=== PATIENT | female | born 1965 | race Caucasian/White ===

== ENCOUNTER → 2020-08-13 | Outpatient (CLI) | payer MEDICARE, OTHER ==
[~2020-08-13] MED LIST: ALL DAY ALLERGY10 M2 PO; CRESTOR20 MG PO; DEXILANT30 MG PO; FELDENE10 MG PO; FLEXERIL 10 MG10 MG PO; GABAPENTIN800 MG PO; HYDROCODONE BIT10 MG PO; LINZESS290 MCG PO; LISINOPRIL40 MG PO; LODINE CAP 300300 MG PO; METFORMIN ER1000 MG PO; MOBIC15 MG PO; PEPCID20 MG PO; SENNA LAX8.6 MG PO; VITAMIN B12-FO1 EACH PO; VITAMIN D21250 MCG PO; Voltaren Gel 1 % TOP
== END ==
LOC: KOH-I 13:39
DX: J44.9 Chronic obstructive pulmonary disease, unspecified (principal)
CPT/HCPCS: 71046

== ENCOUNTER → 2021-06-17 | Outpatient (CLI) | payer MEDICARE, OTHER ==
[~2021-06-17] MED LIST changes: +BIOTIN PO; +CLONAZEPAM1 MG PO; +DEXILANT60 MG PO; +FERROUS SULFAT325 MG PO; +GLUCOPHAGE 500500 MG PO; +HYDROCODON-ACE1 EAC6 PO; +ONDANSETRON HCL8 MG PO; +PEPCID40 MG PO; +ROBAXIN 750 MG750 MG PO; +VITAMIN B12 SL; +VITAMIN D PO
[2021-06-17 13:05] LABS: HEMOGLOBIN 10.7 gm/dl (12.3-15.3); RED BLOOD COUNT 3.55 M/UL (4.00-5.10); WHITE BLOOD COUNT 6.7 K/UL (4.5-11.0)
[2021-06-17 13:33] LABS: BUN/CREATININE RATIO 11 (0-10)
== END ==
LOC: OPSV2 11:00
PROVIDERS: Obstetrics & Gynecology
DX: Z01.818 Encounter for other preprocedural examination (principal); N81.9 Female genital prolapse, unspecified
CPT/HCPCS: 71046; 80053; 81001; 85025; 93005

== ENCOUNTER 2021-06-29 08:25 | Day surgery (SDC) | payer MEDICARE, OTHER ==
[~2021-06-29] VITALS: Ht 157.5 cm; Wt 80.7 kg
[2021-06-29] MEDS ORDERED: DOCUSATE SODIU250 MG PO (15:12)
[2021-06-29] MEDS ORDERED: IBUPROFEN600 MG PO (15:12)
[2021-06-29] MEDS ORDERED: HYDROCODONE-AC1 EACH PO (15:12)
[2021-06-29 17:12] LABS: HEMOGLOBIN 10.4 gm/dl (12.3-15.3); RED BLOOD COUNT 3.5 M/UL (4.00-5.10); WHITE BLOOD COUNT 6.6 K/UL (4.5-11.0)
[2021-06-30 07:15] LABS: HEMOGLOBIN 9.2 gm/dl (12.3-15.3)
[2021-06-30 07:28] LABS: RED BLOOD COUNT 3.08 M/UL (4.00-5.10)
[2021-06-30 07:36] LABS: BUN/CREATININE RATIO 10 (0-10)
--- NOTE | 2021-06-30 10:47 | NUR ---
LOPEZ CATHETER REMOVED WITH 1200 CC URINE NOTED IN LOPEZ BAG
--- NOTE | 2021-06-30 12:57 | NUR ---
0800 PT LOPEZ CATHETER DISCONTINUED WITH 1200ML IN URINE BAG, PT TOLERATED WELL.1250 PT CRYING IN PAIN BEGGING FOR CATHETER TO BE REINSERTED, SAID THE PAIN CAME ON SUDDENLY AND SHE COULDNT STAND IT.18FR INSERTED WITH 950 CC OUT IMMEDIATELY, DR SANCHEZ AWARE.
--- NOTE | 2021-06-30 16:23 | NUR ---
pt's family arrived, home care for brady catheter demonstrated by pt and sister. awaiting wheelchair for discharge.
== END 2021-06-30 16:37 | disposition home or self-care (01) ==
LOC: MED SURG 4 08:25 → OR 08:25 → EDSTATUS 12:45 → MED SURG 4 17:51 → OR 06-30 16:37
PROVIDERS: Anesthesiology; Internal Medicine
DX: N81.10 Cystocele, unspecified (principal); N72 Inflammatory disease of cervix uteri; N87.9 Dysplasia of cervix uteri, unspecified; I10 Essential (primary) hypertension; E11.9 Type 2 diabetes mellitus without complications; J44.9 Chronic obstructive pulmonary disease, unspecified; K21.9 Gastro-esophageal reflux disease without esophagitis; E78.5 Hyperlipidemia, unspecified; Z23 Encounter for immunization; Z79.84 Long term (current) use of oral hypoglycemic drugs; Z79.899 Other long term (current) drug therapy
CPT/HCPCS: 36415; 80048; 82962; 85027; C1769; J0690; J1100; J1170; J1885; J2001; J2250; J2270; J2405; J2550; J2704; J2710; J3010; J7050; J7120